=== PATIENT | male | born 1975 | race Caucasian/White ===

== ENCOUNTER 2024-01-13 08:46 | Emergency (ER) | payer BC, SELFPAY ==
[2024-01-13] VITALS (38 sets, daily range): BP systolic 138–181; BP diastolic 88–128; PULSE 76–113; RESP 9–24; TEMP 36.8; O2SAT 95–99
--- NOTE | 2024-01-13 08:45 | RT.EKG_ITS ---
APPROVED REPORT Exam: Resting ECG Reason for Exam: Elevated Heart Rate Patient Location: E HR:101 bpm ECG Measurements Heart Rate 101 AXIS OH 151 P 61 QRSd 112 QRS -6 QT 330 T 47 QTc 427 Conclusion Sinus tachycardia...rate> 99 Probable left atrial enlargement...P >50mS, <-0.10mV V1 Incomplete right bundle branch block...QRSd >112, terminal axis(90,270) Sinus tachycardia, consider partial RBBB
--- NOTE | 2024-01-13 09:14 | W.ED.GENAD ---
Discharge Plan Disposition Patient Disposition: Home Condition: Improving Discharge Details Chief Complaint: Palpitatns Clinical Impression: Palpitations Primary Care Provider: None,None ED Provider: Shaggy Salcedo Home Meds and New Rx's Prescriptions: No Action No Known Home Meds Discharge Instructions Instructions: Palpitations ED Additional Instructions: We have given you a referral to primary care, we will provide you with the number for [facility] services for outpatient counseling services, please follow-up with primary care please return to the Emergency Department for any worsening symptoms. We have given you a one-time dose of clonazepam 0.5 mg to be taken by mouth once in case of severe anxiety/panic. Again for any worsening symptoms please return to the emergency department HPI General Date/Time Provider Initiated Documentation: 01/13/24 09:13. 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 Patient denies chest pain shortness of breath nausea vomiting denies leg swelling or pain denies history of thromboembolic disease or coronary disease. Denies drug or alcohol use. Last caffeine intake 1 day ago. Related Data Home Medications ?Medication ?Instructions ?Recorded ?Confirmed Unknown [No Known Home Meds] 01/13/24 01/13/24 Allergies Allergy/AdvReac Type Severity Reaction Status Date / Time No Known Allergies Allergy Unverified 01/13/24 08:54 General Stated Complaint: Palpitatns HOOD: 3 Exam Narrative Exam Narrative: Alert oriented interactive Moist mucous membranes tongue secretions normal voice Normal heart sounds no murmurs rubs or gallops, tachycardia Lungs clear bilaterally no wheezes rales or rhonchi Abdomen soft nontender nondistended Alert oriented interactive cranial nerves intact 5-5 strength upper lower extremities bilaterally, no ataxia Calm cooperative no SI no HI No peripheral edema no signs of trauma Course Vital Signs Vital signs: Vital Signs Temperature 36.8 C 01/13/24 08:48 Pulse 112 H 01/13/24 08:48 Respiratory Rate 20 01/13/24 08:48 Blood Pressure 181/128 H 01/13/24 08:48 Pulse Oximetry 98 01/13/24 08:48 Temperature 36.8 C 01/13/24 08:48 Temperature Source Oral 01/13/24 08:48 Pulse 112 H 01/13/24 08:48 Respiratory Rate 20 01/13/24 08:48 Respiratory Effort Normal, Non-Labored 01/13/24 08:54 Blood Pressure 181/128 H 01/13/24 08:48 Blood Pressure Position Sitting 01/13/24 08:48 Pulse Oximetry 98 01/13/24 08:48 Oxygen Delivery Method Room Air 01/13/24 08:48 Oxygen Flow Rate 0 01/13/24 08:48 Pain Level 0 01/13/24 08:48 Medical Decision Making 48-year-old male presents with sensation of jitteriness and fast heart rate over the last day, has been traveling for work seminar by car, 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 Patient denies chest pain shortness of breath nausea vomiting denies leg swelling or pain denies history of thromboembolic disease or coronary disease. Denies drug or alcohol use. Last caffeine intake 1 day ago. Noted to be markedly hypertensive tachycardic on arrival, cool clammy hands, patient endorses high anxiety stress related to his work and anxiety being here in the emergency department, no chest pain or shortness of breath. Heart rate greatly improved after being placed in room now 105, blood pressure 160 systolic with normal diastolic range, lungs clear no peripheral edema, no signs of trauma no signs of intoxication, consider fatigue from recent travel versus dehydration versus electrolyte derangement versus stress/anxiety reaction however must consider PE given sinus tachycardia with right bundle branch block on EKG lower suspicion for ACS pneumonia pneumothorax or aortic pathology. Low suspicion for intra-abdominal process such as cholecystitis or appendicitis given benign abdominal examination no nausea no vomiting and afebrile state. Will obtain basic labs troponin BNP D-dimer, fluids anxiolysis close reassessment 12: 27 patient feeling much better after fluids and anxiolysis. Heart rate and blood pressure have improved. Labs unremarkable. Consider panic attack versus anxiety. Lower suspicion for primary cardiac or infectious process lower suspicion for thromboembolic disease given history physical and labs. Patient will be given primary care referral as well as [facility] human services referral for outpatient counseling for anxiety. Patient denies SI HI, given strict return precautions for any worsening symptoms Quality:SDOH Health Related Social Needs: No Data to Display PFSH All Active Problems (Updated 01/13/24 @ 12:29 by Shaggy Salcedo MD) Palpitations (Acute) Social History Smoking/Tobacco Use Status: Never Smoking risk assessment performed?: Yes Alcohol Intake: never Drug use: Never Substance use type: does not use
[2024-01-13] MEDS: Normal Saline 1,000 ML 1000 ML IV ×2 (09:15→11:10)
[2024-01-13 09:21] LABS: Abs Immature Grans 0.05 10^3/uL (0.0-0.06); Absolute Basophil Count 0.03 10^3/uL (0.0-0.2); Absolute Eosinophil Count 0.05 10^3/uL (0.0-0.7); Absolute Lymphocyte Count 2.19 10^3/uL (1.2-3.4); Absolute Neutrophil Count 5.28 10^3/uL (1.2-6.7); Basophils % 0.4 %; Eosinophils % 0.6 %; HGB 17.4 g/dL (13.5-17.5); Immature Grans % 0.6 %; MCH 28.2 pg (27.0-33.0); MCHC 33.5 % (32.0-36.0); MCV 84 fL (80-95); MPV 11.4 fL (8.0-11.0); Monocytes % 6.2 %; Neutrophils % 65.2 %; Platelet Count 146 10^3/uL (130-400); RBC 6.16 10^6/uL (4.36-5.78); RDW 11.9 % (11.8-14.1); RDW-SD 36.4 fL
[2024-01-13] MEDS: LORazepam 2 MG/ML VIAL 0.5 MG IVP (09:23)
[2024-01-13 09:38] LABS: PTT Activated 24.7 sec (23.6-32.8)
[2024-01-13 09:45] LABS: ALT 61 U/L (16-63); AST 20 U/L (15-37); Albumin 4.4 g/dL (3.4-5.0); Alkaline Phosphatase 97 U/L (46-116); Anion Gap 7.6 mmol/L (3-11); BUN 13 mg/dL (7-18); Bilirubin, Total 0.87 mg/dL (0.2-1.0); CO2 29.4 mmol/L (21.0-32.0); CREATININE 1.3 mg/dL (0.70-1.30); Calcium 9.6 mg/dL (8.5-10.1); Chloride 102 mmol/L (98-107); Estimated GFR 68.61 (mL/min/1.73m2); Glucose 136 mg/dL (74-106); Magnesium 2.2 mg/dL (1.8-2.4); NT-proBNP 25 pg/mL (<300); Potassium 3.2 mmol/L (3.5-5.1); Sodium 139 mmol/L (136-145); TSH (W/Ref FT4) 1.81 uIU/mL (0.36-3.74); Total Protein 8.1 g/dL (6.4-8.2); Troponin I 4 ng/L (<or=76)
[2024-01-13 10:05] LABS: D-Dimer 206 ng/mlFEU (<500)
[2024-01-13 10:33] LABS: Troponin I 4 ng/L (<or=76)
[2024-01-13] MEDS: clonazePAM 0.5 MG TAB PO (12:33)
== END 2024-01-13 12:39 | disposition home or self-care (01) ==
PROVIDERS: Emergency Provider Emergency Medicine
DX: R00.2 Palpitations (principal); R00.0 Tachycardia, unspecified; I45.19 Other right bundle-branch block
CPT/HCPCS: 80053; 93005; 96361; 96374; 99284; 83735; 83880; 84443; 84484; 85025; 85379; 85610; 85730; 93010; J2060